=== PATIENT | male | born 1960 | race Caucasian/White ===

== ENCOUNTER → 2020-11-12 | Outpatient (CLI) | payer BC, OTHER ==
[~2020-11-12] MED LIST: CELEBREX200 MG PO; FLONASE SPRAY; HYDROCODON-ACE1 EAC4 PO; LO-DOSE ASPIRIN81 MG PO; NITROSTAT0.4 MG SL; OMEPRAZOLE20 M1 PO; RANEXA500 MG PO; REPATHA SY140 MG/1 M INJ; VALSARTAN-HCTZ1 EACH PO
[2020-11-12 12:16] LABS: HEMOGLOBIN 14.7 gm/dl (14.0-17.5); RED BLOOD COUNT 4.9 M/UL (4.20-5.50); WHITE BLOOD COUNT 6.2 K/UL (4.5-11.0)
[2020-11-12 12:34] LABS: BUN/CREATININE RATIO 14 (0-10)
== END ==
LOC: OPSV2 11:21
PROVIDERS: Orthopaedic Surgery
DX: Z01.812 Encounter for preprocedural laboratory examination (principal); G56.02 Carpal tunnel syndrome, left upper limb
CPT/HCPCS: 36415; 80048; 85025

== ENCOUNTER → 2020-12-01 | Day surgery (SDC) | payer BC ==
[~2020-12-01] VITALS: Ht 185.4 cm; Wt 129.3 kg
== END | disposition home or self-care (01) ==
LOC: OR 11-17 07:45
DX: G56.02 Carpal tunnel syndrome, left upper limb (principal); E78.5 Hyperlipidemia, unspecified; J44.9 Chronic obstructive pulmonary disease, unspecified; I25.10 Atherosclerotic heart disease of native coronary artery without angina pectoris; K21.9 Gastro-esophageal reflux disease without esophagitis; Z20.822 Contact with and (suspected) exposure to COVID-19; Z88.8 Allergy status to other drugs, medicaments and biological substances; Z95.5 Presence of coronary angioplasty implant and graft
CPT/HCPCS: J0690; J1100; J1170; J2001; J2250; J2405; J2704; J3010; J7030; J7120

== ENCOUNTER → 2021-09-02 | Outpatient (CLI) | payer BC | LOC: KOH-I 16:19 | DX: M54.42 Lumbago with sciatica, left side (principal); G89.29 Other chronic pain; M47.816 Spondylosis without myelopathy or radiculopathy, lumbar region | CPT/HCPCS: 72100 ==